=== PATIENT | female | born 1955 | race Caucasian/White ===

== ENCOUNTER 2021-10-21 07:25 | Outpatient (CLI) | payer OTHER | END 2021-10-21 07:26 | disposition home or self-care (01) | LOC: BICULT 07:25 | PROVIDERS: ATTEND Family Medicine | DX: R10.11 Right upper quadrant pain (principal); K80.20 Calculus of gallbladder without cholecystitis without obstruction | CPT/HCPCS: 76705 ==

== ENCOUNTER 2024-04-28 09:04 | Outpatient (CLI) | payer OTHER | END 2024-04-28 09:05 | disposition home or self-care (01) | LOC: BICCT 09:04 | PROVIDERS: ATTEND Internal Medicine | DX: Z12.2 Encounter for screening for malignant neoplasm of respiratory organs (principal); F17.210 Nicotine dependence, cigarettes, uncomplicated; K74.60 Unspecified cirrhosis of liver; R18.8 Other ascites | CPT/HCPCS: 71271 ==

== ENCOUNTER 2024-05-30 08:36 | Outpatient (CLI) | payer OTHER | END 2024-05-30 08:37 | disposition home or self-care (01) | LOC: BICULT 08:36 | PROVIDERS: ATTEND Internal Medicine | DX: K74.60 Unspecified cirrhosis of liver (principal); I81 Portal vein thrombosis; I86.4 Gastric varices | CPT/HCPCS: 76700 ==